=== PATIENT | female | born 1975 | race African-American/Black ===

== ENCOUNTER 2016-11-04 09:03 | Emergency (ER) | payer OTHER ==
[2016-11-04 09:10] VITALS: BMI 27.4
--- NOTE | 2016-11-04 09:38 | PDOC ---
History of Present Illness - General Chief Complaint: Pain Stated Complaint: NECK PROBLEM, BLURRED VISION Time Seen by Provider: 11/04/16 09:16 History Source: Patient Exam Limitations: No Limitations - History of Present Illness Initial Comments: 41 yo female with h/o right ear hearing impairment, bilateral tubal ligation, and mild asthma who p/w right clavicle pain worsening since Monday. She notes that the pain began Monday morning after she awoke. It is up to 8/10, sharp, and radiates both up to her right head and down her right arm to her fingertips. It worsens with any movement, and improves with rest and Advil use ( last dose yesterday). She has never had this pain before, she denies any heavy lifting, overexertion, falls, or other possible injuries to the area. She additionally notes right eye blurry vision which is new for her. She denies any fever, chills, nausea, vomiting, diarrhea, constipation (last BM in the past day ), black/bloody stool, chest pain, shortness of breath, cough, sore throat, dental pain or swelling, difficulty speaking or swallowing, numbness, tingling, weakness, or other symptoms. Past History - Past Medical History Allergies/Adverse Reactions: Allergies Allergy/AdvReac Type Severity Reaction Status Date / Time No Known Allergies Allergy Verified 01/09/15 10:22 Home Medications: Ambulatory Orders Albuterol 0.083% Nebulizer Ellen [Ventolin 0.083%] 1 neb NEB QID 01/09/15 Methylprednisolone [Medrol Dose Ramirez] 4 mg PO ASDIR #21 tablet 11/04/16 Asthma: Yes - Psycho/Social/Smoking Cessation Hx Anxiety: No Suicidal Ideation: No Smoking History: Never smoked Have you smoked in the past 12 months: No Information on smoking cessation initiated: No Hx Alcohol Use: No Drug/Substance Use Hx: No Substance Use Type: None Review of Systems - Review of Systems Able to Perform ROS?: Yes Constitutional: No: Chills, Fever, Unexplained wgt Loss HEENTM: Yes: Blurred Vision (right eye). No: Nose Congestion, Throat Pain, Dental Problems, Difficulty Swallowing Respiratory: No: Cough, Shortness of Breath Cardiac (ROS): Yes: Chest Pain (right upper chest/clavicle). No: Palpitations ABD/GI: No: Constipated, Diarrhea, Nausea, Vomiting : No: Burning, Dysuria Musculoskeletal: Yes: Neck Pain (right anterolateral neck pain). No: Back Pain Integumentary: No: Bruising, Rash Neurological: No: Headache, Numbness, Tingling, Weakness, Dizziness Endocrine: No: Unexplained Weight Gain, Unexplained Weight Loss *Physical Exam - Vital Signs Last Vital Signs Temp Pulse Resp BP Pulse Ox 98.7 F 84 20 130/94 100 11/04/16 09:07 11/04/16 09:07 11/04/16 09:07 11/04/16 09:07 11/04/16 09:07 - Physical Exam General Appearance: Yes: Nourished, Appropriately Dressed, Other (appears uncomfortable, conversive and answering appropriately). No: Apparent Distress HEENT: positive: EOMI, TRACEY, Normal Voice, Hearing Grossly Normal, Other (no temporal tenderness to palpation). negative: Scleral Icterus (R), Scleral Icterus (L), Muffled/Hoarse voice, Nasal Congestion, Lesions, Navarro, Excessive drooling Neck: positive: Tender (right anterolateral mild tenderness to palpation overlying the distal sternoleidomastoid distribution, no midline posterior spinal tenderness to palpation), Trachea midline, Supple. negative: Rigid, Carotid bruit, Decreased range of motion Respiratory/Chest: positive: Lungs Clear, Normal Breath Sounds. negative: Respiratory Distress, Crackles, Rhonchi, Stridor, Wheezing Cardiovascular: positive: Regular Rhythm, Regular Rate, Other (no carotid bruits ). negative: Murmur Vascular Pulses: Carotid (R): 2+, Carotid (L): 2+ Gastrointestinal/Abdominal: positive: Normal Bowel Sounds, Soft. negative: Tender, Organomegaly, Pulsatile Mass, Guarding Musculoskeletal: positive: Normal Inspection. negative: CVA Tenderness, Decreased Range of Motion, Vertebral Tenderness Extremity: positive: Normal Capillary Refill, Normal Inspection, Normal Range of Motion. negative: Tender, Cyanosis Integumentary: positive: Normal Color, Dry, Warm. negative: Erythema, Rash, Bruising Neurologic: positive: metal mover II-XII NML intact, Fully Oriented, Alert, Normal Mood/ Affect, Normal Response, Motor Strength 5/5 (including radial, median, ulnar, distal and proximal BUE distributions), Finger to Nose (normal). negative: Facial Droop, Numbness, Sensory Deficit Heart Score/ECG Review #1 ECG reviewed & interpreted by me at: 10:45 General ECG Interpretation: Sinus Rhythm, Normal Rate, Normal Intervals, No acute ischemic changes ED Treatment Course - LABORATORY CBC & Chemistry Diagram: 11/04/16 10:17 11/04/16 10:17 - RADIOLOGY Radiology Studies Ordered: Head CT with contrast and neck CTA show no acute disease process. Chest X-Ray Result: No Infiltrates, Other (no obvious fractures or bony abnormalities) Medical Decision Making - Medical Decision Making 41 yo female p/w right neck pain radiating to right head and right arm, also right vision blurry. Exam with right medial clavicle tenderness, neurovascularly intact, no dental tenderness or gingival swelling. DDX includes cervical or upper thoracic radiculopathy, neck artery dissection, muscle spasm/strain/sprain, temporal arteritis, dental infection, DVT, ACS, pneumonia, lung mass, etc. Ordered are CBC, CMP, troponin, ESR, UA with culture, CXR, EKG, CT head with contrast, and neck CTA Lab work is unremarkable with the exception of ESR=34. EKG, CXR, Head CT with contrast, and neck CTA are unremarkable. Her pain decreases to a minimal level with toradol and the patient wishes to go home. Neurology is consulted and has no concern for temporal arteritis in a patient this age with mildly elevated ESR. Neuro suggests radiculopathy as possible cause given the normal neck CTA. Ophthalmology is called and additionally has no concern for temportal arteritis. However they graciously are willing to see the patient in clinic on Monday. Appointment is made for 3:45 pm on Monday; patient will call if she needs to reschedule. The patient is comfortable with DC home with ophtho and PCP follow up. She is prescribed a Medrol Dose Ramirez. *DC/Admit/Observation/Transfer Diagnosis at time of Disposition: Neck pain on right side, Blurry vision, right eye - Discharge Dispostion Disposition: HOME Condition at time of disposition: Stable Admit: No - Prescriptions Prescriptions: Methylprednisolone [Medrol Dose Ramirez] 4 mg PO ASDIR #21 tablet - Referrals Referrals: Edith Gonsalez MD [Staff Physician] - - Patient Instructions Printed Discharge Instructions: DI for Neck Pain Additional Instructions: You were seen today for right-sided neck pain, radiating to your right head and down your right arm, and right-sided blurry vision. We checked your lab work and this was mostly normal except for a slightly elevated ESR, which was 34, and which is a marker of inflammation. We ordered a head and neck CT because of your pain and blurry vision, and this was normal. Please follow up with mission worker Dr. Bowling on Saturday 11/04, at 3:45 pm in [place] ( address is [address] [place] [address]). We made you an appointment for this time and day - if this does not work, please call their office at [phone] to reschedule. Please take the Medrol DosePak which will help with the symptoms and also follow up with your regular doctor as needed, or return to the ED for further emergency concerns. - Attestations Physician Attestion: 11/04/16 11:36 I, Dr. Chary Nolan, attest that this document has been prepared under my direction and personally reviewed by me in its entirety. I further attest, that it accurately reflects all work, treatment, procedures and medical decision -making performed by me.
[2016-11-04] MEDS ORDERED: KETOROLAC TROMETHAMINE 30 MG/1 ML VIAL IVPUSH ONE (09:52)
[2016-11-04] MEDS ORDERED: methylPREDNISolone NA SUCC 125 MG/2 ML VIAL IVPB ONE (09:52)
[2016-11-04] MEDS ORDERED: methylPREDNISolone NA SUCC 125 MG/2 ML VIAL ONE (10:21)
[2016-11-04] MEDS ORDERED: KETOROLAC TROMETHAMINE 30 MG/1 ML VIAL ONE (10:21)
[2016-11-04 10:27] LABS: BASOPHIL 1.2 % (0-2.0); EOSINOPHIL 2.6 % (0-4.5); MCH 25.1 pg (25.7-33.7); MEAN CELL VOLUME 78.5 fl (80-96); MEAN PLT VOLUME 7.9 fl (7.5-11.1); NEUTROPHILS 62.4 % (42.8-82.8); PLATELET COUNT 372 K/MM3 (134-434); RDW 16.5 % (11.6-15.6); WHITE BLOOD COUNT 5.1 K/mm3 (4.0-10.0)
[2016-11-04 11:00] LABS: ALBUMIN 3.5 g/dl (3.4-5.0); ANION GAP 9 (8-16); CALCIUM 8.6 mg/dL (8.5-10.1); CO2 25 mmol/L (21-32); CREATININE 0.6 mg/dL (0.55-1.02); GLUCOSE,RANDOM 87 mg/dL (74-106); SGOT/AST 14 U/L (15-37)
[2016-11-04 11:08] LABS: ALK PHOS 55 U/L (45-117); BILIRUBIN,TOTAL 0.5 mg/dL (0.2-1.0); SGPT/ALT 13 U/L (12-78); TOT PROT 7.2 g/dl (6.4-8.2); TROPONIN I < 0.02 ng/ml (0.00-0.05)
--- NOTE | 2016-11-04 11:54 | PDOC ---
Attending Attestation - Resident Resident Name: Chary Nolan - ED Attending Attestation I have performed the following: I have examined & evaluated the patient, The case was reviewed & discussed with the resident, I agree w/resident's findings & plan, Exceptions are as noted - HPI HPI: 11/04/16 11:52 41 yo female with right sided clavicle neck and arm pain past few days. - Physicial Exam PE: 11/04/16 11:53 No focal neurological findings- NAD otherwise unremarkable - Medical Decision Making 11/04/16 11:54 I agree with Chary's assessment, work up and plan
[2016-11-04 12:02] LABS: URINE APPEARANCE CLEAR; URINE BILIRUBIN NEGATIVE (NEGATIVE); URINE BLOOD 1+ (NEGATIVE); URINE COLOR COLORLESS; URINE GLUCOSE (UA) NEGATIVE (NEGATIVE); URINE KETONE NEGATIVE (NEGATIVE); URINE LEUK ESTERASE NEGATIVE (NEGATIVE); URINE NITRITE NEGATIVE (NEGATIVE); URINE PROTEIN NEGATIVE (NEGATIVE); URINE UROBILINOGEN NEGATIVE mg/dL (0.2-1.0)
[2016-11-04 12:06] LABS: URINE RBC <1 /hpf (0-3); URINE WBC <1 /hpf (3-5)
[2016-11-04] MEDS ORDERED: predniSONE 20 MG TABLET (UD) PO ONE ×2 (14:30→14:41)
[2016-11-04] MEDS ORDERED: predniSONE 20 MG TABLET (UD) ONE (14:42)
[2016-11-04 17:29] VITALS: BP 133/87; PULSE 89; TEMP 98.6
--- NOTE | 2016-11-07 09:55 | EKG ---
Test Reason : Blood Pressure : / mmHG Vent. Rate : 063 BPM Atrial Rate : 063 BPM P-R Int : 116 ms QRS Dur : 080 ms QT Int : 386 ms P-R-T Axes : 000 028 024 degrees QTc Int : 395 ms NORMAL SINUS RHYTHM NORMAL ECG NO PREVIOUS ECGS AVAILABLE Confirmed by FELICITAS MCCONNELL MD ([id number]) on 11/07/2016 9:55:30 AM Referred By: Confirmed By:FELICITAS MCCONNELL MD
== END 2016-11-04 17:28 | disposition home or self-care (01) ==
LOC: JER 09:03
DX: M54.2 Cervicalgia (principal); H53.8 Other visual disturbances
CPT/HCPCS: 36415; 70450-TC; 70460-TC; 70498-TC; 71020-TC; 72125-TC; 80053; 81003; 81015; 84484; 84703; 85025; 85651; 87086; 93005; 93010; 99285-25

== ENCOUNTER 2017-05-09 10:04 | Emergency (ER) | payer OTHER ==
[2017-05-09 10:40] VITALS: BP 115/87; PULSE 85; TEMP 98.7; BMI 29.0
--- NOTE | 2017-05-09 11:44 | PDOC ---
History of Present Illness <Cm Mota - Last Filed: 05/09/17 11:55> - General History Source: Patient Exam Limitations: No Limitations - History of Present Illness Initial Comments: 05/09/17 13:07 The patient is a 42 year old female with a significant PMH of asthma and hypertension who presents to the emergency department with flu-like symtoms that began approximately 4 days ago. The patient states her fever, cough productive of whitish sputum, headache, sore throat, body aches, and nausea have improved but was sent to the ER by her employer as they want her evauated by a doctor. The patient states she last had a fever on Monday. The patient reports she has taken mucinex and advil cold and sinus with mild alleviation of her symptoms but denies taking any medications today. Pt states her symptoms have been improving (fever/congestion/aches), but cough has been persistent. The patient denies chest pain, shortness of breath, LEMON, hemotpysis, headache and dizziness. Denies fever, chills, nausea, vomit, diarrhea and constipation. Denies dysuria, frequency, urgency and hematuria. Allergies: NKA Past surgical history: None reported Social history: No reported alcohol, drug, or cigarette use. PCP: Dr. Banerjee <Felicia Ashley - Last Filed: 05/09/17 13:08> - General Chief Complaint: Cold Symptoms Stated Complaint: FLU LIKE SYMPTOMS Time Seen by Provider: 05/09/17 11:43 Past History - Past Medical History Asthma: Yes COPD: No DVT: No HTN: Yes - Immunization History Immunization Up to Date: Yes - Suicide/Smoking/Psychosocial Hx Smoking History: Never smoked Have you smoked in the past 12 months: No Information on smoking cessation initiated: No Hx Alcohol Use: No Drug/Substance Use Hx: No Substance Use Type: None <Cm Mota - Last Filed: 05/09/17 11:55> <Felicia Ashley - Last Filed: 05/09/17 13:08> - Past Medical History Allergies/Adverse Reactions: Allergies Allergy/AdvReac Type Severity Reaction Status Date / Time No Known Allergies Allergy Verified 05/09/17 10:36 Home Medications: Ambulatory Orders Albuterol 0.083% Nebulizer Ellen [Ventolin 0.083%] 1 neb NEB QID 01/09/15 Methylprednisolone [Medrol Dose Ramirez] 4 mg PO ASDIR #21 tablet 11/04/16 Albuterol Sulfate Inhaler - [Ventolin HFA Inhaler -] 1 - 2 inh PO Q4H PRN #1 inhaler 05/09/17 Benzonatate [Tessalon Pearls -] 100 mg PO TID PRN #21 capsule 05/09/17 Review of Systems - Review of Systems Able to Perform ROS?: Yes Comments:: 05/09/17 13:07 CONSTITUTIONAL: No reported: Chills, Diaphoresis, Generalized Weakness, Malaise, Loss of Appetite Reported: Fever HEENT: No reported: Rhinorrhea, Nasal Congestion, Throat Pain, Throat Swelling, Difficulty Swallowing, Mouth Swelling, Ear Pain, Eye Pain, Visual Changes CARDIOVASCULAR: No reported: Chest Pain, Syncope, Palpitations, Irregular Heart Rate, Lightheadedness, Peripheral Edema RESPIRATORY: No reported: SOB with Exertion, Orthopnea, Wheezing, Stridor, Hemoptysis Reported: Sore throat, Cough, SOB GASTROINTESTINAL: No reported: Abdominal pain, Abdominal Distension, Vomiting, Diarrhea, Constipation, Melena, Hematochezia Reported: Nausea. GENITOURINARY: No reported: Dysuria, Frequency, Urgency, Hesitancy, Flank Pain, Genital Pain MUSCULOSKELETAL: No reported: Myalgia, Arthralgia, Joint Swelling, Back pain, Neck Pain Reported: Body aches. SKIN: No reported: Rash, Itching, Pallor HEMEATOLOGIC/IMMUNOLOGIC: No reported: Easy Bleeding, Easy Bruising, Lymphadenopathy, Frequent infections ENDOCRINE: No reported: Unexplained Weight Gain, Unexplained Weight Loss, Heat Intolerance , Cold Intolerance NEUROLOGIC: No reported: Headache, Focal Weakness, Paresthesias, Vertigo, Lightheadedness, Unsteady Gait, Seizure, Mental Status Changes, Incontinence PSYCHIATRIC: No reported: Anxiety, Depression <Felicia Ashley - Last Filed: 05/09/17 13:08> *Physical Exam - Vital Signs Last Vital Signs Temp Pulse Resp BP Pulse Ox 98.7 F 85 16 115/87 100 05/09/17 10:37 05/09/17 10:37 05/09/17 10:37 05/09/17 10:37 05/09/17 10:37 <Cm Mota - Last Filed: 05/09/17 11:55> - Vital Signs Last Vital Signs Temp Pulse Resp BP Pulse Ox 98.7 F 85 16 115/87 100 05/09/17 10:37 05/09/17 10:37 05/09/17 10:37 05/09/17 10:37 05/09/17 10:37 - Physical Exam Comments: 05/09/17 13:08 GENERAL: The patient is awake, alert, and fully oriented, Nontoxic - in no acute distress. HEAD: Normocephalic, atraumatic. EYES: extraocular movements intact, sclera anicteric, conjunctiva clear. ENT: Normal voice, Moist mucous membranes. NECK: Normal range of motion, supple LUNGS: Breath sounds equal, clear to auscultation bilaterally. No wheezes, no rhonchi, no rales. HEART: Regular rate and rhythm, without murmur, rub or gallop. ABDOMEN: Soft, nontender, normoactive bowel sounds. No guarding, no rebound.No CVA tenderness EXTREMITIES: Normal range of motion, no edema. No clubbing or cyanosis. No cords, erythema, or tenderness. NEUROLOGICAL: No facial assymetry, Normal speech, PSYCH: Normal mood, normal affect. SKIN: Warm, Dry, normal turgor, <Felicia Ashley - Last Filed: 05/09/17 13:08> Medical Decision Making - Medical Decision Making 05/09/17 11:55 42y F hx of htn, asthma presents with flu like symtoms for the past 4 days, sypmtoms seem to be resolving, but her employer wanted to have her get a return to work note. pts fever/congestion/body aches all seem to be improving, although she notes a persistent cough that is produtive of whitish sputum. last fever was on monday. last med usage on monday. lungs clear no distress no cp, leg sweling, hemoptysis suspect flu/cold outside window of tratment of tamiflu will give rx for albuterol and rosina ibrahim will dc with pmd fu return precautions wre discussed I discussed the physical exam findings, ancillary test results and final diagnoses with the patient. I answered all of the patient's questions. The patient was satisfied with the care received and felt comfortable with the discharge plan and treatment plan. The patient will call their primary care physician within 24 hours to arrange follow-up and will return to the Emergency Department with any new, persistent or worsening symptoms. A portion of this note was documented by scribe services under my direction. I have reviewed the details of the note, within reason, and agree with the documentation with the following case summary and management plan written by me <Cm Mota - Last Filed: 05/09/17 11:55> *DC/Admit/Observation/Transfer - Discharge Dispostion Admit: No <Cm Mota - Last Filed: 05/09/17 11:55> - Attestations Scribe Attestion: Documentation prepared by Felicia Ashley, acting as veterinary medical officer for Cm Mota MD. <Felicia Ashley - Last Filed: 05/09/17 13:08> Diagnosis at time of Disposition: Flu-like symptoms - Discharge Dispostion Disposition: HOME Condition at time of disposition: Improved - Prescriptions Prescriptions: Albuterol Sulfate Inhaler - [Ventolin HFA Inhaler -] 1 - 2 inh PO Q4H PRN #1 inhaler PRN Reason: Shortness Of Breath Benzonatate [Tessalon Pearls -] 100 mg PO TID PRN #21 capsule PRN Reason: Cough - Referrals Referrals: Adrianna Banerjee MD [Primary Care Provider] - - Patient Instructions Printed Discharge Instructions: How to Avoid a Cold or Flu, DI for Viral Upper Respiratory Infection -- Adult Additional Instructions: Return to the emergency department immediately with ANY new, persistent or worsening symptoms. You MUST call and follow up with your doctor tomorrow for further evaluation of your symptoms. Results were discussed with you. Please make sure your doctor reviews the results of your emergency evaluation. If you had any xrays during your visit, it was read preliminarily by myself, a Radiologist will review it and if there are any additional findings we will call you - Post Discharge Activity Forms/Work/School Notes: Back to Work
== END 2017-05-09 12:59 | disposition home or self-care (01) ==
LOC: JERFT 10:04 → JER 10:04
DX: J11.1 Influenza due to unidentified influenza virus with other respiratory manifestations (principal); I10 Essential (primary) hypertension; J45.909 Unspecified asthma, uncomplicated
CPT/HCPCS: 99281-25

== ENCOUNTER 2017-08-21 16:30 | Emergency (ER) | payer OTHER ==
--- NOTE | 2017-08-21 16:38 | PDOC ---
Rapid Medical Evaluation Time Seen by Provider: 08/21/17 16:33 Medical Evaluation: Allergies Allergy/AdvReac Type Severity Reaction Status Date / Time No Known Allergies Allergy Verified 05/09/17 10:36 08/21/17 16:34 I have performed a brief in-person evaluation of this patient. The patient presents with a chief complaint of: atraumatic left ribcage pain for 3 weeks Pertinent physical exam findings: Lungs CTAB. Tender to anterior left 10th rib. No palpable spleen I have ordered the following: urine, CXR The patient will proceed to the ED for further evaluation. Discharge Disposition - Diagnosis Rib pain on left side - Referrals - Patient Instructions - Post Discharge Activity
[2017-08-21 16:39] VITALS: BP 138/77; PULSE 85; TEMP 98.8; BMI 30.7
--- NOTE | 2017-08-21 17:57 | PDOC ---
History of Present Illness - General Chief Complaint: Pain Stated Complaint: CHEST PAIN Time Seen by Provider: 08/21/17 16:33 - History of Present Illness Initial Comments: 42-year-old female with past medical history of asthma and hypertension on home meds presents for evaluation of 3 weeks worth of left sided rib pain which occurred atraumatically. Her pain is exacerbated with movement minimally relieved with rest free of radiation. She points to the area of the left 11th and 12th rib as the area of the discomfort. No ALLERGIES she's had C-sections 3. 08/21/17 17:55 Past History - Past Medical History Allergies/Adverse Reactions: Allergies Allergy/AdvReac Type Severity Reaction Status Date / Time No Known Allergies Allergy Verified 08/21/17 16:34 Home Medications: Ambulatory Orders NK [No Known Home Medication] 08/21/17 Asthma: Yes COPD: No DVT: No HTN: Yes - Immunization History Immunization Up to Date: Yes - Suicide/Smoking/Psychosocial Hx Smoking History: Never smoked Have you smoked in the past 12 months: No Information on smoking cessation initiated: No Hx Alcohol Use: No Drug/Substance Use Hx: No Substance Use Type: None Review of Systems - Review of Systems All Other Systems: Reviewed and Negative *Physical Exam - Vital Signs Last Vital Signs Temp Pulse Resp BP Pulse Ox 98.8 F 85 18 138/77 100 08/21/17 16:35 08/21/17 16:35 08/21/17 16:35 08/21/17 16:35 08/21/17 16:35 - Physical Exam Comments: GENERAL: [The patient is awake, alert, and fully oriented, in no acute distress. ] HEAD: [Normal with no signs of trauma.] EYES: [Pupils equal, round and reactive to light, extraocular movements intact, sclera anicteric, conjunctiva clear.] ENT: [Ears normal, nares patent, oropharynx clear without exudates. Moist mucous membranes.] NECK: [Normal range of motion, supple without lymphadenopathy, JVD, or masses.] LUNGS: [Breath sounds equal, clear to auscultation bilaterally. No wheezes, and no crackles. There is tenderness about the 11th and 12th ribs] HEART: [Regular rate and rhythm, normal S1 and S2 without murmur, rub or gallop. ] ABDOMEN: [Soft, nontender, normoactive bowel sounds. No guarding, no rebound. No masses.] EXTREMITIES: [Normal range of motion, no edema. No clubbing or cyanosis. No cords, erythema, or tenderness.] NEUROLOGICAL: [Cranial nerves II through XII grossly intact. Normal speech, normal gait.] PSYCH: [Normal mood, normal affect.] SKIN: [Warm, Dry, normal turgor, no rashes or lesions noted.] 08/21/17 17:56 ED Treatment Course - ADDITIONAL ORDERS Additional order review: Laboratory Results 08/21/17 17:45 Urine HCG, Qual Negative Medical Decision Making - Medical Decision Making Rest x-rays negative she is tender over the 11th and 12th rib there is no radiolucencies as far as I can see on her chest x-ray in those bones. I will have her follow up with the primary care physician in one to 2 days for further evaluation and possibly advanced imaging 08/21/17 18:22 *DC/Admit/Observation/Transfer Diagnosis at time of Disposition: Rib pain on left side - Discharge Dispostion Disposition: HOME Condition at time of disposition: Stable Decision to Admit order: No - Referrals Referrals: Adrianna Banerjee MD [Primary Care Provider] - - Patient Instructions Additional Instructions: Can continue to take Motrin and Tylenol Feer pain as needed in the meantime its best follow-up with her primary care doctor he may want to order advanced imaging to further evaluate the cause of your rib pain - Post Discharge Activity
== END 2017-08-21 18:27 | disposition home or self-care (01) ==
LOC: JERFT 16:30
DX: R07.81 Pleurodynia (principal)
CPT/HCPCS: 71046-TC-FY; 84703; 99281-25

== ENCOUNTER 2018-05-07 16:08 | Emergency (ER) | payer OTHER ==
[2018-05-07 16:15] VITALS: PULSE 95; TEMP 98.6; BMI 30.2
--- NOTE | 2018-05-07 16:15 | PDOC ---
Rapid Medical Evaluation Time Seen by Provider: 05/07/18 16:09 Medical Evaluation: Allergies Allergy/AdvReac Type Severity Reaction Status Date / Time No Known Allergies Allergy Verified 08/21/17 16:34 05/07/18 16:10 I have performed a brief in-person evaluation of the patient. The patient presents with a chief complaint of: elevated blood pressure. complaining of headache and eye pressure today while at work. Non compliant with medication Pertinent physical exam findings. NAD lungs clear and unalabored heart s1s2 I have ordered the following. The patient will proceed to the ED for further evaluation.
--- NOTE | 2018-05-07 16:26 | PDOC ---
History of Present Illness - General Chief Complaint: Blood Pressure Problem Stated Complaint: HIGH BLOOD PRESSURE Time Seen by Provider: 05/07/18 16:09 History Source: Patient Exam Limitations: No Limitations - History of Present Illness Initial Comments: 05/07/18 16:25 42-year-old female with past medical history of HTN and asthma, who presents due to severe h/a, eye pressure and nausea since this morning. Patient was at work when symptoms began; her BP was measured by a nurse and she was told it is high, though patient does not remember the number. In ED it is measured 146/99. She states her h/a is 9/10 pain however appears very comfortable. She has not taken anything other than tylenol since her symptoms began, which has marginally helped. Her h/a is band like, most severe in occipital region, pulsatile and stabbing. Patient states that she used to take a amlodipine 5 mg but ran out in october and has not gotten a refill because she doesnt like to take pills. She denies vertigo, tinnitus, vision change, focal weakness/paresthesia, cp, palpitations, vomiting, loc, sob, abd pain, d/c, dysuria. She is agreeable to f/u with her PCP 05/07/18 16:41 05/07/18 16:56 05/07/18 17:00 05/07/18 17:02 Past History - Past Medical History Allergies/Adverse Reactions: Allergies Allergy/AdvReac Type Severity Reaction Status Date / Time No Known Allergies Allergy Verified 05/07/18 16:12 Home Medications: Ambulatory Orders Amlodipine Besylate [Norvasc -] 5 mg PO DAILY #7 tablet 05/07/18 Asthma: Yes COPD: No CHF: No DVT: No HTN: Yes (non compliant) - Immunization History Immunization Up to Date: Yes - Suicide/Smoking/Psychosocial Hx Smoking History: Never smoked Have you smoked in the past 12 months: No Information on smoking cessation initiated: No Hx Alcohol Use: No Drug/Substance Use Hx: No Substance Use Type: None Review of Systems - Review of Systems Able to Perform ROS?: Yes Is the patient limited Maltese proficient: No Constitutional: No: Chills, Fever HEENTM: No: Double Vision, Tinnitus, Hearing Loss Respiratory: No: Cough, Orthopnea, Shortness of Breath Cardiac (ROS): No: Chest Pain, Edema, Irregular Heart Rate, Lightheadedness, Palpitations ABD/GI: Yes: Nausea. No: Constipated, Diarrhea, Vomiting, Abdominal cramping : No: Dysuria Musculoskeletal: No: Back Pain Neurological: Yes: Headache. No: Numbness, Paresthesia, Seizure, Weakness, Unsteady Gait Psychiatric: No: Anxiety, Depression *Physical Exam - Vital Signs Last Vital Signs Temp Pulse Resp BP Pulse Ox 98.6 F 95 H 16 146/99 100 05/07/18 16:12 05/07/18 16:12 05/07/18 16:12 05/07/18 16:12 05/07/18 16:12 - Physical Exam General Appearance: Yes: Nourished, Appropriately Dressed. No: Apparent Distress HEENT: positive: EOMI, TRACEY, Normal Voice, Symmetrical. negative: Scleral Icterus (R), Scleral Icterus (L) Neck: positive: Supple. negative: Tender, Carotid bruit Respiratory/Chest: positive: Lungs Clear, Normal Breath Sounds Cardiovascular: positive: Regular Rhythm, Regular Rate, S1, S2. negative: Edema , JVD, Murmur Gastrointestinal/Abdominal: positive: Normal Bowel Sounds, Flat, Soft. negative : Tender, Organomegaly Musculoskeletal: negative: CVA Tenderness Integumentary: positive: Dry, Warm Neurologic: positive: licensed physical therapy assistant II-XII NML intact (grossly ), Alert Moderate Sedation - Procedure Monitoring Vital Signs: Procedure Monitoring Vital Signs Temperature 98.6 F 05/07/18 16:12 Pulse Rate 95 H 05/07/18 16:12 Respiratory Rate 16 05/07/18 16:12 Blood Pressure 146/99 05/07/18 16:12 O2 Sat by Pulse Oximetry (%) 100 05/07/18 16:12 ED Treatment Course - ADDITIONAL ORDERS Additional order review: 05/07/18 17:04 patient presents with tension type h/a and mildly elevated BP. she will be given a Norvasc 5 and a Tylenol, an EKG will be done. 05/07/18 17:08 05/07/18 18:51 EKG NS 81, nonspecific t inversion in septal leads, no evidence of acs. manually reechecked BP L arm 144/100 after norvascc 5. will give another norvascc 5. patient states her h/a has greatly improved She is safe to dc home with PCP f/u this week. shell be given a script for 7 days of Norvasc 5. 05/07/18 18:52 05/07/18 18:55 *DC/Admit/Observation/Transfer Diagnosis at time of Disposition: Hypertension Qualifiers: Hypertension type: unspecified Qualified Code(s): I10 - Essential (primary) hypertension - Discharge Dispostion Disposition: HOME Condition at time of disposition: Good Decision to Admit order: No - Prescriptions Prescriptions: Amlodipine Besylate [Norvasc -] 5 mg PO DAILY #7 tablet - Referrals - Patient Instructions Printed Discharge Instructions: DI for High Blood Pressure Additional Instructions: please take norvasc 5 daily in the morning for blood pressure. your pharmacy was sent a script for a 7 day supplu. please follo up with your family doctor tomorrow to recheck blood pressure. - Post Discharge Activity
--- NOTE | 2018-05-07 16:37 | PDOC ---
Attending Attestation - Resident Resident Name: Estephania Hernandez - ED Attending Attestation I have performed the following: I have examined & evaluated the patient, The case was reviewed & discussed with the resident, I agree w/resident's findings & plan, Exceptions are as noted - HPI HPI: 05/07/18 16:36 43 yo female has not been compliant w her high blood pressure medications and has a headache. She took some Tylenol early this morning. She states that she is sitting Norvasc hasn't taken in 6 months. She has no visual changes, no vomiting, no chest pain, no shortness of breath and no gross focal neural deficits 05/07/18 17:20 - Physicial Exam PE: 05/07/18 17:21 43-year-old female, seated him for endocrine no acute distress. Head normocephalic, atraumatic. Eyes pupils equal, reactive to light and accommodation. Extraocular muscles are intact. Neck is supple, no JVD. Lungs are clear to auscultation. CVS is regular rate and rhythm S1, S2 Abdomen is nontender. Extremities no edema. Skin warm and dry. Neuro she is alert and oriented 3, ambulating with ease. Psych appropriate - Medical Decision Making 05/07/18 17:22 Patient will be started again back on her Norvasc 5 that she is to take previously. EKG will be done. PCP is Dr. Carvajal and she was encouraged to follow up with her 05/07/18 18:42 EKG is sinus rhythm, 91 bpm there are some septal T waves , she is inverted T waves in V1 and V2. She has no ST elevations or ST depressions. She has a normal QTC She has never had any chest pain or shortness breath. Impression essential hypertension, noncompliant with medications frontal headache resolved. Plan cotton picker her Norvasc prescription and start taking her medications and follow-up with her PCP
[2018-05-07] MEDS ORDERED: amLODIPine BESYLATE 5 MG TABLET (FP) PO ONE ×2 (16:54→18:52)
[2018-05-07] MEDS ORDERED: amLODIPine BESYLATE 5 MG TABLET (FP) ONE ×2 (17:05→18:59)
[2018-05-07] MEDS ORDERED: ACETAMINOPHEN 325 MG TABLET (FP) PO ONE (17:07)
[2018-05-07] MEDS ORDERED: ACETAMINOPHEN 325 MG TABLET (FP) ONE (17:43)
[2018-05-07 18:56] VITALS: BP 144/100
--- NOTE | 2018-05-08 12:17 | EKG ---
Test Reason : Blood Pressure : / mmHG Vent. Rate : 081 BPM Atrial Rate : 081 BPM P-R Int : 114 ms QRS Dur : 088 ms QT Int : 386 ms P-R-T Axes : 023 060 053 degrees QTc Int : 448 ms NORMAL SINUS RHYTHM NORMAL ECG Confirmed by MD CRESCENCIO, MENDOZA ([id number]) on 05/08/2018 12:16:38 PM Referred By: Confirmed By:MENDOZA PRATHER MD
== END 2018-05-07 19:04 | disposition home or self-care (01) ==
LOC: JER 16:08
DX: I10 Essential (primary) hypertension (principal); G44.209 Tension-type headache, unspecified, not intractable; J45.909 Unspecified asthma, uncomplicated
CPT/HCPCS: 93005; 93010; 99281-25

== ENCOUNTER 2018-06-20 23:40 | Emergency (ER) | payer OTHER ==
[2018-06-20 23:52] VITALS: BP 138/98; PULSE 89; TEMP 98.8; BMI 29.0
--- NOTE | 2018-06-21 00:02 | PDOC ---
*Physical Exam - Vital Signs Last Vital Signs Temp Pulse Resp BP Pulse Ox 98.8 F 89 20 138/98 99 06/20/18 23:51 06/20/18 23:51 06/20/18 23:51 06/20/18 23:51 06/20/18 23:51 ED Treatment Course - LABORATORY CBC & Chemistry Diagram: 06/21/18 00:25 06/21/18 00:25 Medical Decision Making - Medical Decision Making 06/21/18 00:02 Patient seen by the advanced practice provider under my direct supervision. Ancillary testing reviewed as necessary. I agree with plan as outlined by the advanced practice provider. *DC/Admit/Observation/Transfer Diagnosis at time of Disposition: Musculoskeletal chest pain - Referrals - Patient Instructions - Post Discharge Activity
--- NOTE | 2018-06-21 00:24 | PDOC ---
History of Present Illness - General Chief Complaint: Pain Stated Complaint: PAIN IN LFT SHOULDER/NAUSEA Time Seen by Provider: 06/20/18 23:54 History Source: Patient Exam Limitations: No Limitations Past History - Past Medical History Allergies/Adverse Reactions: Allergies Allergy/AdvReac Type Severity Reaction Status Date / Time No Known Allergies Allergy Verified 06/20/18 23:51 Home Medications: Ambulatory Orders Amlodipine Besylate [Norvasc -] 5 mg PO DAILY #7 tablet 05/07/18 Asthma: Yes COPD: No CHF: No DVT: No HTN: Yes (non compliant) - Immunization History Immunization Up to Date: Yes - Suicide/Smoking/Psychosocial Hx Smoking History: Never smoked Have you smoked in the past 12 months: No Information on smoking cessation initiated: No Hx Alcohol Use: No Drug/Substance Use Hx: No Substance Use Type: None *Physical Exam - Vital Signs Last Vital Signs Temp Pulse Resp BP Pulse Ox 98.8 F 89 20 138/98 99 06/20/18 23:51 06/20/18 23:51 06/20/18 23:51 06/20/18 23:51 06/20/18 23:51 - Physical Exam General Appearance: No: Apparent Distress Neck: positive: Supple Respiratory/Chest: positive: Lungs Clear, Normal Breath Sounds. negative: Chest Tender, Respiratory Distress Cardiovascular: positive: Regular Rhythm, Regular Rate, S1, S2. negative: Murmur Gastrointestinal/Abdominal: positive: Normal Bowel Sounds, Soft. negative: Tender, Distended, Guarding, Rebound Extremity: positive: Normal Inspection. negative: Pedal Edema, Calf Tenderness Integumentary: positive: Normal Color Neurologic: positive: Alert, Normal Mood/Affect Heart Score/ECG Review - History History: Slightly suspicious - Electrocardiogram EKG: Normal - Age Age: </= 45 - Risk Factors Risk Factors Heart Score: Yes Hx Hypertension Based on the list above the patient has:: 1-2 risk factors - Troponin Troponin: </= normal limit - Score Heart Score - Total: 1 Moderate Sedation - Procedure Monitoring Vital Signs: Procedure Monitoring Vital Signs Temperature 98.8 F 06/20/18 23:51 Pulse Rate 89 06/20/18 23:51 Respiratory Rate 20 06/20/18 23:51 Blood Pressure 138/98 06/20/18 23:51 O2 Sat by Pulse Oximetry (%) 99 06/20/18 23:51 ED Treatment Course - LABORATORY CBC & Chemistry Diagram: 06/21/18 00:25 06/21/18 00:25 - ADDITIONAL ORDERS Additional order review: Laboratory Results 06/21/18 03 00:25 00:25 Sodium 138 Potassium 3.9 Chloride 106 Carbon Dioxide 26 Anion Gap 5 L BUN 16 Creatinine 0.6 Creat Clearance w eGFR > 60 Random Glucose 89 Calcium 8.8 Troponin I < 0.02 Urine HCG, Qual Negative 06/21/18 00:25 RBC 3.74 MCV 78.3 L MCHC 33.3 RDW 17.2 H MPV 7.9 Neutrophils % 55.3 Lymphocytes % 31.2 Monocytes % 9.0 Eosinophils % 3.6 Basophils % 0.9 - RADIOLOGY Radiology Studies Ordered: Category Date Time Status CHEST PA & LAT [RAD] Stat Radiology 06/21/18 00:06 Taken - Medications Given in the ED: ED Medications Discontinued Medications Generic Name Dose Route Start Last Admin Trade Name Freq PRN Reason Stop Dose Admin Ibuprofen 600 mg 06/21/18 01:21 06/21/18 01:29 Motrin - PO 06/21/18 01:22 600 mg ONCE ONE Administration Medical Decision Making - Medical Decision Making 43 y/o F with hx of asthma, HTN presents with L sided CP radiating down L arm since yesterday, constant in nature. Tried taking Tylenol without much relief of pain. CP is not exertional and is not worsened by anything in particular. Denies having pain along this site before. Denies fever, cough, sob, abd pain, vomiting, dizziness, palpitations, calf pain. Denies smoking or drug use. Denies FH of CAD or CA. Consider ACS, costochondritis PERC negative Initial EKG: NSR at 75 bpm, T wave flattening lead III Plan: Labs, CXR 06/21/18 00:21 CXR wet read negative Labs unremarkable (incidental anemia noted, Hgb stable from prior; patient is aware of her history of anemia) Heart score 1 Stable for dc 06/21/18 01:42 *DC/Admit/Observation/Transfer Diagnosis at time of Disposition: Musculoskeletal chest pain - Discharge Dispostion Disposition: HOME Condition at time of disposition: Stable Decision to Admit order: No - Referrals Referrals: Adrianna Banerjee MD [Primary Care Provider] - 2 Days - Patient Instructions Printed Discharge Instructions: DI for Chest Pain Additional Instructions: Thank you for choosing [facility]. It was a pleasure taking care of you. Likely your chest pain is musculoskeletal in origin Follow-up with your doctor in 2-3 days Return to the Emergency Department if your symptoms worsen or persist, you have fever, shortness of breath, chest pain, severe abdominal pain, vomiting or other concerning symptoms. - Post Discharge Activity
[2018-06-21 00:47] LABS: BASO % 0.9 % (0-2.0); EOS % 3.6 % (0-4.5); HEMATOCRIT 29.3 % (32.4-45.2); HEMOGLOBIN 9.8 GM/dL (10.7-15.3); LYMPH % 31.2 % (8-40); MCH 26.1 pg (25.7-33.7); MCHC 33.3 g/dl (32.0-36.0); MEAN CELL VOLUME 78.3 fl (80-96); MEAN PLT VOLUME 7.9 fl (7.5-11.1); NEUT % 55.3 % (42.8-82.8); PLATELET COUNT 366 K/MM3 (134-434); RBC 3.74 M/mm3 (3.60-5.2); RDW 17.2 % (11.6-15.6); WHITE BLOOD COUNT 6.9 K/mm3 (4.0-10.0)
[2018-06-21 01:11] LABS: ANION GAP 5 MMOL/L (8-16); BLOOD UREA NITROGEN 16 mg/dL (7-18); CALCIUM 8.8 mg/dL (8.5-10.1); CHLORIDE 106 mmol/L (98-107); CO2 26 mmol/L (21-32); CREATININE 0.6 mg/dL (0.55-1.3); GLUCOSE,RANDOM 89 mg/dL (74-106); POTASSIUM 3.9 mmol/L (3.5-5.1); SODIUM 138 mmol/L (136-145)
[2018-06-21] MEDS ORDERED: IBUPROFEN 600 MG TABLET (FP) PO ONE ×2 (01:21→01:23)
--- NOTE | 2018-06-21 10:50 | EKG ---
Test Reason : Blood Pressure : / mmHG Vent. Rate : 075 BPM Atrial Rate : 075 BPM P-R Int : 114 ms QRS Dur : 088 ms QT Int : 382 ms P-R-T Axes : 019 043 032 degrees QTc Int : 426 ms NORMAL SINUS RHYTHM NORMAL ECG WHEN COMPARED WITH ECG OF 07-MAY-2018 18:38, NO SIGNIFICANT CHANGE WAS FOUND Confirmed by BALA HUGHES MD ([id number]) on 06/21/2018 10:49:47 AM Referred By: Confirmed By:BALA HUGHES MD
== END 2018-06-21 02:15 | disposition home or self-care (01) ==
LOC: JER 23:40
DX: R07.9 Chest pain, unspecified (principal); I10 Essential (primary) hypertension; Z91.14 Patient's other noncompliance with medication regimen
CPT/HCPCS: 36415; 71046-TC-FY; 80048; 84484; 84703; 85025; 93005; 93010; 99282-25

== ENCOUNTER 2020-06-12 07:12 | Emergency (ER) | payer OTHER ==
[2020-06-12 07:41] VITALS: BP 154/102; PULSE 85; TEMP 97.2; BMI 30.4
[2020-06-12] MEDS ORDERED: KETOROLAC TROMETHAMINE 30 MG/1 ML VIAL IM ONE (07:48)
[2020-06-12] MEDS ORDERED: KETOROLAC TROMETHAMINE 30 MG/1 ML VIAL ONE (08:01)
== END 2020-06-12 08:30 | disposition home or self-care (01) ==
LOC: JER 07:12
PROC: 3E023GC Introduction of Other Therapeutic Substance into Muscle, Percutaneous Approach (ICD-10-PCS; principal; 2020-06-12)
DX: M54.5 Low back pain (principal)
CPT/HCPCS: 99284-25

== ENCOUNTER 2020-08-04 04:10 | Day surgery (SDC) | payer OTHER ==
[2020-08-03 15:08] VITALS: BMI 32.1
[2020-08-04] MEDS ORDERED: LIDOCAINE HCL 1%, 10 MG/ML (20ML VIAL) ONE ×2 (11:01→11:37)
[2020-08-04] MEDS ORDERED: ISOSULFAN BLUE 50 MG/5 ML VIAL SQ ONE (11:37)
[2020-08-04] MEDS ORDERED: PROPOFOL 20 ML ONE (12:16)
[2020-08-04] MEDS ORDERED: MIDAZOLAM HCL 2 MG/2 ML SINGLE DOSE VIAL ONE (12:16)
[2020-08-04] MEDS ORDERED: LIDOCAINE HCL 1%, 10 MG/ML (20ML VIAL) INF ONE (12:37)
[2020-08-04] MEDS ORDERED: ONDANSETRON 4 MG/2 ML VIAL ONE (12:38)
[2020-08-04] MEDS ORDERED: DEXAMETHASONE SOD PHOSPHATE 4 MG/1 ML VIAL ONE (12:38)
[2020-08-04] MEDS ORDERED: ONDANSETRON 4 MG/2 ML VIAL IVPUSH PRN (13:09)
[2020-08-04] MEDS ORDERED: oxyCODONE HCL 5 MG TABLET PO PRN (13:09)
[2020-08-04] MEDS ORDERED: IBUPROFEN 800 MG/8 ML IJ IVPB PRN (13:09)
[2020-08-04] MEDS ORDERED: LACTATED RINGERS SOLUTION 1,000 ML IV SCH (13:15)
[2020-08-04 16:06] VITALS: BP 125/89; PULSE 84; TEMP 98
== END 2020-08-04 16:25 | disposition home or self-care (01) ==
LOC: JASU-SURG 04:10
PROVIDERS: ATTEND Surgery
PROC: 0HBT0ZX Excision of Right Breast, Open Approach, Diagnostic (ICD-10-PCS; principal; 2020-08-04 11:00)
DX: D24.1 Benign neoplasm of right breast (principal); N60.11 Diffuse cystic mastopathy of right breast
CPT/HCPCS: 81025; 88307-TC; 94760

== ENCOUNTER 2021-08-27 16:22 | Emergency (ER) | payer OTHER ==
[2021-08-27 16:41] VITALS: BP 124/83; PULSE 93; TEMP 98.2; BMI 31.9
[2021-08-27] MEDS ORDERED: SODIUM CHLORIDE 0.9% 500 ML INFUS.BAG IV ONE (17:36)
[2021-08-27 18:36] LABS: PH,URINE 7.5 (5.0-8.0); URINE APPEARANCE CLEAR; URINE BILIRUBIN NEGATIVE (NEGATIVE); URINE COLOR YELLOW; URINE GLUCOSE (UA) NEGATIVE (NEGATIVE); URINE KETONE NEGATIVE (NEGATIVE); URINE LEUK ESTERASE NEGATIVE (NEGATIVE); URINE NITRITE NEGATIVE (NEGATIVE); URINE PROTEIN NEGATIVE (NEGATIVE); URINE UROBILINOGEN 0.2 mg/dL (0.2-1.0)
[2021-08-27 18:49] LABS: EOS % 4.4 % (0-4.5); HEMATOCRIT 31.8 % (32.4-45.2); HEMOGLOBIN 10.5 GM/dL (10.7-15.3); LYMPH % 29.8 % (8-40); MCH 26.4 pg (25.7-33.7); MCHC 33.1 g/dl (32.0-36.0); MEAN PLT VOLUME 7.6 fl (7.5-11.1); MONO % 6.3 % (3.8-10.2); NEUT % 58.5 % (42.8-82.8); PLATELET COUNT 462 10^3/uL (134-434); RBC 3.97 M/mm3 (3.60-5.2); RDW 15.1 % (11.6-15.6); WHITE BLOOD COUNT 6.8 K/mm3 (4.0-10.0)
[2021-08-27 19:00] LABS: CALCIUM 9.1 mg/dL (8.5-10.1)
[2021-08-27 19:01] LABS: ALBUMIN 3.7 g/dl (3.4-5.0); BLOOD UREA NITROGEN 10.1 mg/dL (7-18); MAGNESIUM 2.6 mg/dL (1.8-2.4)
[2021-08-27 19:04] LABS: CREATININE 0.5 mg/dL (0.55-1.3)
[2021-08-27 19:06] LABS: BILIRUBIN,TOTAL 0.5 mg/dL (0.2-1); TOT PROT 7.9 g/dl (6.4-8.2)
[2021-08-27] MEDS ORDERED: ACETAMINOPHEN 1000 MG/100 ML BAG IVPB ONE (20:08)
[2021-08-27] MEDS ORDERED: ACETAMINOPHEN INJECTION 100 ML IVPB ONE (20:39)
[2021-08-27] MEDS ORDERED: DEXAMETHASONE LIQUID 0.5 MG/5 ML PO ONE (22:38)
[2021-08-27] MEDS ORDERED: DEXAMETHASONE SOD PHOSPHATE 10 MG/1 ML VIAL ONE (22:53)
== END 2021-08-27 23:15 | disposition home or self-care (01) ==
LOC: JER 16:22
PROC: 3E0333Z Introduction of Anti-inflammatory into Peripheral Vein, Percutaneous Approach (ICD-10-PCS; principal; 2021-08-27)
DX: R00.2 Palpitations (principal)
CPT/HCPCS: 0241U-QW; 36415; 71045-TC-FY; 80053; 81003; 83735; 84484; 84703; 85025; 87077; 87086; 93005; 93010; 99285-25

== ENCOUNTER 2021-10-30 07:23 | Emergency (ER) | payer OTHER ==
[2021-10-30 07:54] VITALS: BP 128/80; PULSE 107; RESP 18; TEMP 98.8; BMI 33.0
[2021-10-30] MEDS ORDERED: ACETAMINOPHEN 500 MG TABLET (FP) PO ONE (08:51)
[2021-10-30] MEDS ORDERED: LIDOCAINE 5% TOPICAL PATCH TP ONE (08:52)
[2021-10-30] MEDS ORDERED: LIDOCAINE 5% TOPICAL PATCH ONE (09:09)
[2021-10-30] MEDS ORDERED: ACETAMINOPHEN 500 MG TABLET (FP) ONE (09:09)
[2021-10-30] MEDS ORDERED: KETOROLAC TROMETHAMINE 30 MG/1 ML VIAL IM ONE (09:30)
[2021-10-30] MEDS ORDERED: KETOROLAC TROMETHAMINE 10 MG TABLET PO ONE ×2 (09:37→09:54)
[2021-10-30 10:44] LABS: EPI CELLS >36 /uL (0-25.1); HYALINE CASTS 5 /uL (0-3.1); PH,URINE 5.5 (5.0-8.0); URINE APPEARANCE CLEAR; URINE BACTERIA 208 /uL (0-1359); URINE BILIRUBIN NEGATIVE (NEGATIVE); URINE COLOR YELLOW; URINE GLUCOSE (UA) NEGATIVE (NEGATIVE); URINE KETONE NEGATIVE (NEGATIVE); URINE LEUK ESTERASE NEGATIVE (NEGATIVE); URINE NITRITE NEGATIVE (NEGATIVE); URINE PROTEIN NEGATIVE (NEGATIVE); URINE UROBILINOGEN 0.2 mg/dL (0.2-1.0); URINE WBC 30 /uL (0-25.8)
[2021-10-30 10:54] LABS: URINE RBC 16.5 /uL (0-23.9)
== END 2021-10-30 12:33 | disposition home or self-care (01) ==
LOC: JER 07:23
PROC: 3E0233Z Introduction of Anti-inflammatory into Muscle, Percutaneous Approach (ICD-10-PCS; principal; 2021-10-30)
DX: M54.50 Low back pain, unspecified (principal)
CPT/HCPCS: 72100-TC-FY; 81003; 84703; 87077; 87086; 99284-25

== ENCOUNTER 2023-06-05 07:18 | Emergency (ER) | payer OTHER ==
[2023-06-05 07:37] VITALS: BP 126/81; PULSE 92; RESP 18; TEMP 98; BMI 33.0
[2023-06-05] MEDS ORDERED: ACETAMINOPHEN 325 MG TABLET (FP) ONE (08:20)
[2023-06-05] MEDS: ACETAMINOPHEN 500 MG TABLET (FP) PO ONE (08:22)
== END 2023-06-05 09:20 | disposition home or self-care (01) ==
LOC: JER 07:18
DX: J02.9 Acute pharyngitis, unspecified (principal); R09.89 Other specified symptoms and signs involving the circulatory and respiratory systems; R68.83 Chills (without fever); H10.9 Unspecified conjunctivitis; R52 Pain, unspecified; Z20.822 Contact with and (suspected) exposure to COVID-19
CPT/HCPCS: 0241U-QW; 87651; 99283-25

== ENCOUNTER 2023-06-10 14:09 | Emergency (ER) | payer OTHER ==
[2023-06-10 14:34] VITALS: BMI 32.9
[2023-06-10 16:46] LABS: BASO % 0.4 % (0-2.0); EOS % 0.2 % (0-4.5); HEMATOCRIT 30.6 % (32.4-45.2); HEMOGLOBIN 9.9 GM/dL (10.7-15.3); LYMPH % 13.5 % (8-40); MCH 24.4 pg (25.7-33.7); MCHC 32.4 g/dl (32.0-36.0); MEAN CELL VOLUME 75.4 fl (80-96); MEAN PLT VOLUME 7.3 fl (7.5-11.1); MONO % 5.2 % (3.8-10.2); NEUT % 80.7 % (42.8-82.8); PLATELET COUNT 536 10^3/uL (134-434); RBC 4.05 M/mm3 (3.60-5.2); RDW 17.2 % (11.6-15.6)
[2023-06-10 16:57] LABS: INR 1.04 (0.83-1.09); PROTHROMBIN TIME (PATIENT) 12.1 SEC (9.7-13.0)
[2023-06-10 16:59] LABS: ACTIVATED PTT 29.1 SECONDS (25.2-36.5)
[2023-06-10 17:05] VITALS: BP 132/91; PULSE 76; RESP 18; TEMP 98.6
[2023-06-10 17:08] LABS: POTASSIUM 3.7 mmol/L (3.5-5.1)
[2023-06-10 17:10] LABS: URINE APPEARANCE CLEAR; URINE BILIRUBIN NEGATIVE (NEGATIVE); URINE COLOR YELLOW; URINE GLUCOSE (UA) NEGATIVE (NEGATIVE); URINE KETONE NEGATIVE (NEGATIVE); URINE LEUK ESTERASE NEGATIVE (NEGATIVE); URINE NITRITE NEGATIVE (NEGATIVE); URINE PROTEIN NEGATIVE (NEGATIVE); URINE UROBILINOGEN 0.2 mg/dL (0.2-1.0)
[2023-06-10 17:11] LABS: CALCIUM 8.6 mg/dL (8.5-10.1)
[2023-06-10 17:12] LABS: ALBUMIN 3.3 g/dl (3.4-5.0); BLOOD UREA NITROGEN 11.1 mg/dL (7-18)
[2023-06-10 17:16] LABS: BILIRUBIN,TOTAL 0.2 mg/dL (0.2-1); TOT PROT 7.4 g/dl (6.4-8.2)
[2023-06-10 17:18] LABS: CREATININE 0.6 mg/dL (0.55-1.3)
== END 2023-06-10 18:16 | disposition home or self-care (01) ==
LOC: JER 14:09
DX: K62.5 Hemorrhage of anus and rectum (principal); R10.30 Lower abdominal pain, unspecified; R42 Dizziness and giddiness; K64.4 Residual hemorrhoidal skin tags
CPT/HCPCS: 36415; 80053; 81003; 85025; 85610; 85730; 86850; 86900; 86901; 87086; 93005; 93010; 99284-25

== ENCOUNTER 2024-02-05 10:27 | Emergency (ER) | payer OTHER ==
[2024-02-05 10:41] VITALS: BP 143/110; PULSE 85; RESP 16; TEMP 97.9; BMI 32.8
[2024-02-05] MEDS ORDERED: KETOROLAC TROMETHAMINE 30 MG/1 ML VIAL ONE (11:40)
[2024-02-05] MEDS: KETOROLAC TROMETHAMINE 30 MG/1 ML VIAL IM ONE (11:47)
== END 2024-02-05 14:37 | disposition home or self-care (01) ==
LOC: JER 10:27
PROC: 3E0133Z Introduction of Anti-inflammatory into Subcutaneous Tissue, Percutaneous Approach (ICD-10-PCS; principal; 2024-02-05)
DX: M25.562 Pain in left knee (principal); W01.0XXA Fall on same level from slipping, tripping and stumbling without subsequent striking against object, initial encounter
CPT/HCPCS: 73562-TC-LT-FY; 99284-25